=== PATIENT | female | born 1985 | race American Indian/Alaskan Native ===

== ENCOUNTER 2016-06-10 20:29 | Emergency (ER) | payer BC, OTHER ==
[2016-06-10 21:29] LABS: Basophils % (Auto) 0.6 % (0.0-1.8); Eosinophils % (Auto) 0.4 % (0.0-4.3); Hematocrit 43.5 % (30.3-42.9); Hemoglobin 15.1 gm/dl (10.1-14.3); Mean Corpuscular HGB Conc 35 % (30-34); Mean Corpuscular Hemoglobin 28 pg (28-32); Mean Corpuscular Volume 81 fl (79-97); Red Blood Count 5.36 M/mm3 (3.65-5.03); Red Cell Distribution Width 13.6 % (13.2-15.2); White Blood Count 14.4 K/mm3 (4.5-11.0)
[2016-06-10 21:35] LABS: Platelet Count 173 K/mm3 (140-440)
[2016-06-10 21:59] LABS: Alanine Aminotransferase 21 units/L (7-56); Albumin 4.4 g/dL (3.9-5); Albumin/Globulin Ratio 1.2 %; Alkaline Phosphatase 64 units/L (35-129); BUN/Creatinine Ratio 11.11; Bilirubin,Total 0.4 mg/dL (0.1-1.2); Blood Urea Nitrogen 10 mg/dL (7-17); Calcium 9.5 mg/dL (8.4-10.2); Carbon Dioxide 21 mmol/L (22-30); Chloride 102.4 mmol/L (98-107); Glucose 75 mg/dL (65-100); Lipase 18 units/L (13-60); Potassium 4.2 mmol/L (3.6-5.0); Sodium 141 mmol/L (137-145)
[2016-06-10 22:00] LABS: Anion Gap 22 mmol/L
[2016-06-11 03:12] LABS: Bilirubin,Urine NEG (Negative); Blood,Urine LG (Negative); Ketones,Urine TR mg/dL (Negative); Leukocyte Esterase,Urine NEG (Negative); Mucus,Urine 1+ /HPF; Nitrite,Urine NEG (Negative); Urobilinogen,Urine < 2.0 mg/dL (<2.0)
[2016-06-11] MEDS ORDERED: TORADOL IV ONE (06:25)
[2016-06-11] MEDS ORDERED: NACL 0.9% 1000 ML 1,000 ML IV ONE (06:41)
--- NOTE | 2016-06-11 06:46 | Emergency Department Report ---
HPI - General Chief Complaint: Abdominal Pain Time Seen by Provider: 06/11/16 06:18 - HPI HPI: Chief complaint: Lower abdominal pain, lightheadedness HPI: Patient states she was at work last night started her period. Patient states about an hour later she felt extremely lightheaded and went to the restroom and had to lay on the floor to keep from passing out. States she felt tingly all over. No nausea vomiting or diarrhea. Patient states she does have a full menses and this is a typical pain but she has never felt lightheaded with it before. Patient states she has not had an ultrasound Mode of arrival: EMS Source: Patient Began: Yesterday afternoon around 7:00 Duration: Continuous Context: See above Quality: Crampy Severity: 10 out of 10 Improved with: Nothing Worsened with: Nothing Associated signs and symptoms: Lightheadedness ED Past Medical Hx - Past Medical History Previous Medical History?: No - Surgical History Past Surgical History?: No - Social History Smoking Status: Never Smoker - Medications Home Medications: Home Medications Medication Instructions Recorded Confirmed Last Taken Type Ibuprofen [Motrin 600 MG tab] 600 mg PO Q8H PRN #20 tablet 06/11/16 Unknown Rx ED Review of Systems ROS: Stated complaint: ABDOMINAL PAIN Other details as noted in HPI ROS Constitutional: No fever ENT: No uri symptoms Cardiovascular: No chest pain Respiratory: No sob or cough GI: No nausea vomiting or diarrhea : No dysuria frequency or urgency, Skin: No rash Neuro: No focal weakness or numbness Psych: No depression Alberto/lymph: No edema Physical Exam - Physical Exam Vital Signs: Vital Signs 06/10/16 06/11/16 20:41 01:37 Temperature 98.0 F 97.8 F Pulse Rate 80 80 Respiratory 18 20 Rate Blood Pressure 123/72 Blood Pressure 114/68 [Left] O2 Sat by Pulse 100 100 Oximetry Physical Exam: GENERAL: The patient is well-developed well-nourished . Vital signs reviewed. HEENT: Normocephalic. Atraumatic. Extraocular motions are intact. Patient has moist mucous membranes. NECK: Supple. No meningitic signs are noted. There is no adenopathy noted. CHEST/LUNGS: Clear to auscultation. There is no respiratory distress noted. HEART/CARDIOVASCULAR: Regular. There is no tachycardia. There is no gallop rub or murmur. ABDOMEN: Abdomen is soft, suprapubic and left lower quadrant tenderness without rebound or guarding. Patient has normal bowel sounds. There is no abdominal distention. SKIN: There is no rash. There is no edema. There is no diaphoresis. NEURO: The patient is awake, alert, and oriented. The patient is cooperative. The patient has no focal neurologic deficits. The patient has normal speech. MUSCULOSKELETAL: There is no tenderness or deformity. There is no limitation range of motion. There is no evidence of acute injury. ED Course Vital Signs 06/10/16 06/11/16 20:41 01:37 Temperature 98.0 F 97.8 F Pulse Rate 80 80 Respiratory 18 20 Rate Blood Pressure 123/72 Blood Pressure 114/68 [Left] O2 Sat by Pulse 100 100 Oximetry - Reevaluation(s) Reevaluation #1: 06/11/16 06:31 Patient given 30 mg of IV Toradol Reevaluation #2: 06/11/16 08:15 Patient given a liter of normal saline. ED Medical Decision Making - Lab Data Result diagrams: 06/10/16 21:00 06/10/16 21:00 Laboratory Tests 06/10/16 06/10/16 21:00 21:20 Lipase 18 Ur Leukocyte Esterase Neg Urine WBC (Auto) 4.0 U Epithel Cells (Auto) 3.0 Hyaline Casts 2 Urine HCG, Qual Negative - Radiology Data Radiology results: report reviewed (pelvic ultrasound shows small fundal fibroid and bilateral ovarian cysts. Possible follicles.) Critical care attestation.: If time is entered above; I have spent that time in minutes in the direct care of this critically ill patient, excluding procedure time. ED Disposition Clinical Impression: Dysmenorrhea Disposition: DISCHARGED TO HOME OR SELFCARE Is pt being admited?: No Does the pt Need Aspirin: No Condition: Stable Instructions: Abdominal Pain (ED), Dysmenorrhea (ED) Prescriptions: Ibuprofen [Motrin 600 MG tab] 600 mg PO Q8H PRN #20 tablet PRN Reason: Pain Referrals: IZABEL RASHID MD [Primary Care Provider] - 3-5 Days Time of Disposition: 08:15
--- NOTE | 2016-06-11 07:37 | Ultrasound Report ---
ULTRASOUND PELVIS COMPLETE - TRANSABDOMINAL AND TRANSVAGINAL: INDICATION: Pelvic pain. COMPARISON: None similar at this institution. FINDINGS: Transabdominal and transvaginal pelvic sonography performed in this patient with LMP of 06/10/2016 demonstrates an anteverted, 7.3 x 3 x 4 cm uterus with an approximately 1.8 x 1.4 cm posterior fundal fibroid to the right, endovaginal image 14. Endometrial thickness estimated at 4 mm, endovaginal image 8. Minimal physiologic pelvic free fluid. Right ovary is 3.6 x 1.8 x 2.7 cm with few physiologic small follicles measuring up to 9 mm. Left ovary measures 5.1 x 2.3 x 3.4 cm with few small hypoechoic follicles measuring up to 1.5 x 0.8 cm as also 2 relatively hyperechoic areas measuring approximately 1.9 x 1.1 cm, endovaginal image 26 and the other 1.4 x 1.2 cm, endovaginal image 29, latter nonspecific, though possibly hemorrhagic or fatty, amongst others. CONCLUSION: 1. Small fundal fibroid. 2. Both ovaries identified with 2 small nonspecific left ovarian hyperechoic areas, as described. Sonographic follow-up in approximately 6 weeks or opposite phase of the menstrual cycle may also be considered to assess for interval change or resolution, as warranted. Thank you for the opportunity to participate in this patient's care.
[2016-06-11 09:22] VITALS: BP 104/64
== END 2016-06-11 09:00 | disposition home or self-care (01) ==
LOC: ED 20:29
DX: N94.6 Dysmenorrhea, unspecified (principal); R42 Dizziness and giddiness
CPT/HCPCS: 36415; 76830; 76856; 80053; 81001; 81025; 83690; 85025; 96361; 96374; 99284; J1885; J7030